=== PATIENT | female | born 2000 | race Asian ===

== ENCOUNTER 2024-02-14 12:04 | Outpatient (AMB) | payer BC, SELFPAY ==
--- NOTE | 2024-02-14 12:09 | AM.OFFWIN_ITS ---
Intake Vital Signs 02/14/24 12:16 Height 5 ft 2 in BP 106/70 Blood Pressure Location Rt brachial Position Sitting Pulse 76 Pulse Source Pulse Oximeter Temp 97.8 F Temp Source Temporal Artery Scan Pulse Oximetry (%) 99 Intake Visit Reasons: [employer] ?UTI Intake Note: pt is here for possible uti Patient Tobacco Use Status: Never used Tobacco Allergies iohexol [From Omnipaque] Allergy (Mild, Verified 02/14/24 12:17) Rash Do you need a note to return to daycare/school/sports/work: Yes HPI HPI Comments History of Present Illness Details Patient is a 24-year-old female complaining of increased feeling of urination and then when she goes to urinate, not much comes out for the last 2 days. She also states she has some low back pain and some left lower abdominal pain. She denies any pain with urination or blood in her urine or fevers. She does note that she has had some increased hunger and thirst recently as well. PFSH Social History Patient Tobacco Use Status: Never used Tobacco Review of Systems Const All systems reviewed & are unremarkable except as noted in HPI and below Physical Exam Vital Signs: Last Vital Signs Temp 97.8 F 02/14/24 12:16 Pulse 76 02/14/24 12:16 BP 106/70 02/14/24 12:16 Pulse Ox 99 02/14/24 12:16 Const General: cooperative, healthy appearing, comfortable, no acute distress and well developed Orientation/consciousness: patient oriented x3 Limitations: no limitations HEENT Head: Yes normal to inspection Eyes General: appearance normal, both eyes and all related structures Neck Neck: Yes normal visual inspection and Yes full ROM General: Yes bladder normal to palpation and Yes no CVA tenderness Bimanual exam- vagina & uterus: bladder normal to palpation Back/Spine/Pelvis Back: no CVA tenderness Skin General skin exam: no rashes or lesions noted Neuro General: patient oriented x3 Extrem General: Yes normal to inspection Assessment & Plan Assessment & Plan (1) UTI (urinary tract infection): Code(s): N39.0 - Urinary tract infection, site not specified Qualifiers: Urinary tract infection type: acute cystitis Hematuria presence: without hematuria Qualified Code(s): N30.00 - Acute cystitis without hematuria Plan: UA is negative for infection and blood and glucose. However we did do point of care in office as patient requested, it was 86. Advised that we would treat as UTI however if her symptoms do not improve with treatment, she should follow up with the emergency department for further workup. 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 Plan See above Medications: New nitrofurantoin monohyd/m-cryst 100 mg (Macrobid) must administer with a meal/food 100 mg PO Q12H 5 days 10 caps 0RF Coding Level of Care Code New Pt Level 3 (24287) Diagnoses Acute cystitis without hematuria N30.00 Urinary tract infection type: acute cystitis Hematuria presence: without hematuria
[2024-02-14 12:16] VITALS: BP 106/70; PULSE 76; TEMP 36.6; O2SAT 99
== END 2024-02-14 12:31 | disposition home or self-care (01) ==
PROVIDERS: Visit Provider Physician Assistant
DX: N30.00 Acute cystitis without hematuria (principal)
CPT/HCPCS: 99203

== ENCOUNTER 2024-05-30 13:39 | Emergency (ER) | payer BC, SELFPAY ==
--- NOTE | ~2024-05-30 | XR_ITS ---
EXAMINATION: XR FOOT, RIGHT CLINICAL INFORMATION: Injury COMPARISON: None available. TECHNIQUE: AP, lateral, and oblique views of the right foot. FINDINGS: No acute cortical disruption or malalignment. No lytic or blastic lesions. There is a well-corticated 5 mm calcification at the medial posterior tarsal navicular likely normal variant. No subcutaneous emphysema. XR/XR foot RT min 3V IMPRESSION: No acute fracture or dislocation. Electronically signed by: Harish Rodriguez MD 05/30/2024 03:30 PM [facility]
[2024-05-30 14:16] VITALS: BP 125/76; PULSE 84; RESP 16; TEMP 36.6; O2SAT 98; BMI 24.1
--- NOTE | 2024-05-30 14:17 | ED.LOWEXIN ---
HPI - Extremity Injury (Lower) General Chief Complaint: Extremity Injury, Lower Stated Complaint: R foot injury Time Seen by Provider: 05/30/24 16:28 Source: patient, RN notes reviewed and old records reviewed Mode of arrival: ambulatory History of Present Illness ED Provider: Loree Hollins PA-C HPI Narrative: 24-year-old female with no significant past medical history presenting to the ED complaining of right great toe pain and swelling s/p horse stepping on foot yesterday around 18:00. Reports pain worse with ambulation and movement. Denies numbness, tingling, weakness, injury to other area Related Data Home Medications ?Medication ?Instructions ?Recorded ?Confirmed norgestimate-ethinyl estradiol 1 tab PO DAILY 02/14/24 0.18 mg/0.215mg/0.25mg-35 mcg(28)tablet (Tri-Sprintec (28)) Previous Rx's ?Medication ?Instructions ?Recorded nitrofurantoin 100 mg PO Q12H 5 days #10 caps 02/14/24 monohydrate/macrocrystals 100 mg capsule (Macrobid) Allergies Allergy/AdvReac Type Severity Reaction Status Date / Time iohexol [From Omnipaque] Allergy Mild Rash Verified 05/30/24 14:20 Review of Systems Review of Systems: Yes all other systems are reviewed and are negative Constitutional: Constitutional: Reports as per [facility] Past Medical History Attestation statement: The following information was validated with the patient. Source: old records reviewed Social History Social History Patient Tobacco Use Status: Never used Tobacco Advance Directives: No Advance Directives Information Provided: Yes Physical Exam Vital Signs: Vital Signs: Last Vital Signs Temp 97.8 F 05/30/24 17:25 Pulse 84 05/30/24 17:25 Resp 16 05/30/24 17:25 BP 125/76 05/30/24 17:25 Pulse Ox 98 05/30/24 17:25 O2 Del Method Room Air 05/30/24 17:25 BMI result Body Mass Index 24.1 Const: General: cooperative, healthy appearing and no acute distress Orientation/consciousness: patient oriented x3 Limitations: no limitations HEENT: Head: Yes normal to inspection and Yes atraumatic Ears: hearing grossly normal bilaterally General nose exam: Normal external nose present Face and sinus: Yes normal facial exam Eyes: General: appearance normal, both eyes and all related structures EOM: EOMs intact bilaterally Neck: Neck: Yes normal visual inspection and Yes no meningeal signs Resp: Effort & Inspection: normal respiratory effort and no respiratory distress Cardio: Rate: regular rate Skin: Rashes: no rashes Wounds: no wounds Neuro: General: patient oriented x3, tone normal and no meningeal signs Cranial nerves: Yes CN's II-XII intact bilaterally Gait exam (Neuro): Normal gait present Extrem: Other: Right great toe with mild swelling and ecchymosis. Tender to palpation. Limited ROM secondary to pain. Neurovascularly intact. No erythema, fluctuance or induration Course Course Course Narrative: This is an RME: Additional HPI, ROS, PE not included below will be deferred to primary provider. RME assessment and note performed by: Hafsa Esparza PA-C This is a [id number]-female who presents to the ER with complaints of right foot pain since yesterday. A horse stepped on her right foot last night. Pain worsens with weight bearing. Tenderness palpation along the right great toe. Plan: xrays XR foot RT min 3V IMPRESSION: No acute fracture or dislocation. Results discussed with patient including worrisome signs and symptoms and strict return precautions, and when to return to the emergency department. They verbalized understanding and feel safe for discharge at this time. Medical Decision Making Medical Decision Making MDM Narrative: 24-year-old female with no significant past medical history presenting to the ED complaining of right great toe pain and swelling s/p horse stepping on foot yesterday around 18:00. On exam vital signs stable, NAD, nontoxic appearing, physical exam as noted above. Concern for crush injury vs fracture vs strain. No evidence of infection/septic joint or arthritis Plan: X-ray Please refer to course for remaining clinical decision making, interpretation of labs/imaging results, and discussions with consultants and/or family members. Differential Diagnosis Differential Diagnoses: The differential diagnosis associated with the presentation includes As above Independent Interpretation I performed an independent interpretation of an: Plain X-Ray Radiology Impression Discussion of test interpretation with radiology: I have reviewed the radiologist's reading. External Record Review External record reviewed: Inpatient record, Office record, Outpatient record, Prior outpatient labs, Prior outpatient radiology, Primary care record and Outside ED record Tests considered The following testing was considered but not selected: As above Prescription Management I considered prescription management with: Pain Medication Social Determinants Patient?s care significantly limited by Social Determinants of Health including: Other Social Determinant of Health Discharge Plan Discharge Clinical Impression: Crush injury of toe Patient Disposition: Home, Self-Care Instructions: Crush Injury (ED) Additional Instructions: Your x-rays unremarkable, no fracture Ice and elevate Take Tylenol and ibuprofen for pain and swelling Follow-up with your doctor If pain persists or worsens/becomes unbearable or area looks infected return to the emergency department Prescriptions: No Action norgestimate-ethinyl estradiol [Tri-Sprintec (28)] 0.18/0.215/0.25 mg-35 mcg (28) tablet 1 tab PO DAILY nitrofurantoin monohyd/m-cryst [Macrobid] 100 mg capsule 100 mg PO Q12H 5 Days Qty: 10 0RF Rx Instructions: must administer with a meal/food Referrals: Physician,Unknown J [Primary Care Provider] - Stand Alone Forms: Work/School Release Interventions: ED Discharge Assessment Last Done: 05/30/24 17:25 Discharge Date/Time: 05/30/24 17:25 Print Language: Indonesian
[2024-05-30 17:25] VITALS: BP 125/76; PULSE 84; RESP 16; TEMP 36.6; O2SAT 98
== END 2024-05-30 17:25 | disposition home or self-care (01) ==
PROVIDERS: Emergency Provider Emergency Medicine
DX: S97.111A Crushing injury of right great toe, initial encounter (principal); M79.671 Pain in right foot; X58.XXXA Exposure to other specified factors, initial encounter; Y93.52 Activity, horseback riding; Y92.89 Other specified places as the place of occurrence of the external cause; Y99.8 Other external cause status
CPT/HCPCS: 73630; 99282; 99283

== ENCOUNTER → 2024-05-30 14:18 | Outpatient (BNV) | payer BC, SELFPAY | PROVIDERS: Visit Provider Radiology Diagnostic Radiology | DX: S99.921A Unspecified injury of right foot, initial encounter (principal) | CPT/HCPCS: 73630 ==